=== PATIENT | female | born 1990 | race Caucasian/White ===

== ENCOUNTER 2020-09-14 16:55 | Inpatient (IN) | payer OTHER ==
[~2020-09-14] VITALS: Ht 162.6 cm; Wt 56.4 kg
[2020-09-14 17:35] VITALS: BP 140/80
[2020-09-14 18:16] LABS: BILIRUBIN Negative (Negative); BLOOD Negative (Negative); CLARITY Cloudy (Clear); COLOR Yellow (Yellow); GLUCOSE Negative (Negative); KETONE Trace (Negative); LEUKO ESTERASE Negative (Negative); NITRITE Negative (Negative); SPECIFIC GRAVITY >= 1.030 (1.001-1.030)
[2020-09-14 18:23] LABS: ALBUMIN 3.7 gm/dl (3.1-4.5); ALKALINE PHOSPHATASE 94 U/L (45-117); BUN 11 mg/dl (7-24); CHLORIDE 105 mmol/L (98-107); CREATININE 0.63 mg/dL (0.55-1.02); POTASSIUM 4.1 mmol/L (3.5-5.1); SGOT/AST 18 IU/L (3-35); SGPT/ALT 11 U/L (12-78); SODIUM 136 mmol/L (136-145); TOTAL PROTEIN 8.2 gm/dL (6.4-8.2)
[2020-09-14 18:27] LABS: BACTERIA TRACE; CALCIUM OXALATE CRYSTALS 3+; EPITHELIAL CELLS 21-30; MUCOUS 2+; URINE AMPHETAMINES > 1000 (1000ng/ml); URINE BARBITURATES < 200 (200ng/ml); URINE BENZODIAZEPINES < 200 (200ng/ml); URINE CANNABINOIDS (THC) < 50 (50ng/ml); URINE COCAINE < 300 (300ng/ml); URINE METHADONE < 300 (300ng/ml); URINE OPIATES < 300 (300ng/ml); WBC 0-2 wbc/hpf (0-5)
[2020-09-14 18:35] LABS: BETA-HCG, QUANT < 1.0 mIU/mL (1-3); ETHYL ALCOHOL < 3.0 mg/dl (<3)
[2020-09-14 18:35] LABS: URINE PHENCYCLIDINE < 25 (25ng/ml)
[2020-09-14 20:00] VITALS: BP 127/79
[2020-09-14 20:01] LABS: BASO % 0.4 % (0.0-1.0); EOS # 0.1 10*3/uL (0.0-0.4); HEMATOCRIT 36.8 % (37.0-47.0); LYMPH # 3.3 10*3/uL (1.3-4.4); LYMPH % 31.8 % (27.0-41.0); MEAN CELL VOLUME 78.5 fl (81.0-99.0); MEAN CORPUSCULAR HGB 24.3 pg (27.0-31.0); MEAN PLATELET VOLUME 9.8 fl (9.6-12.3); MONO # 0.8 10*3/uL (0.1-1.0); MONO % 7.3 % (3.0-9.0); NEUT # 6.1 10*3/uL (2.3-7.9); NEUT % 59.3 % (47.0-73.0); PLATELET COUNT AUTOMATED 304 10*3/uL (130-400); RED BLOOD COUNT 4.69 10*6/uL (4.10-5.10); RED CELL DISTRI WIDTH 15.9 % (0-14.5); WHITE BLOOD COUNT 10.3 10*3/uL (4.8-10.8)
[2020-09-15] VITALS: BP 123/76
[2020-09-15 08:00] VITALS: BP 120/64
[2020-09-15 12:00] VITALS: BP 114/63
[2020-09-15 16:00] VITALS: BP 110/62
[2020-09-15 20:00] VITALS: BP 112/55
[2020-09-16] VITALS: BP 113/69
== END 2020-09-16 08:05 | disposition left against medical advice (07) | DRG 770 ==
LOC: 5E 16:55
PROVIDERS: Student in an Organized Health Care Education/Training Program; ADMIT Internal Medicine; ATTEND Internal Medicine
DX: F11.23 Opioid dependence with withdrawal (principal); F17.210 Nicotine dependence, cigarettes, uncomplicated; Z20.822 Contact with and (suspected) exposure to COVID-19; Q61.5 Medullary cystic kidney; F15.10 Other stimulant abuse, uncomplicated; Z79.899 Other long term (current) drug therapy; Z53.29 Procedure and treatment not carried out because of patient's decision for other reasons

== ENCOUNTER 2021-01-14 22:14 | Emergency (ER) | payer OTHER ==
[~2021-01-14] VITALS: Wt 49.9 kg
== END 2021-01-14 22:50 | disposition home or self-care (01) ==
LOC: ED 22:14
DX: F11.20 Opioid dependence, uncomplicated (principal)

== ENCOUNTER 2021-01-16 16:48 | Inpatient (IN) | payer OTHER ==
[~2021-01-16] VITALS: Ht 165.1 cm; Wt 56.2 kg
[2021-01-16 17:08] VITALS: BP 104/63
[2021-01-16 19:32] LABS: BILIRUBIN Negative (Negative); BLOOD Negative (Negative); CLARITY Clear (Clear); COLOR Yellow (Yellow); GLUCOSE Negative (Negative); KETONE Trace (Negative); LEUKO ESTERASE Negative (Negative); NITRITE Negative (Negative); PH 5.5 (4.5-8.0)
[2021-01-16 19:41] LABS: URINE AMPHETAMINES > 1000 (1000ng/ml); URINE BARBITURATES < 200 (200ng/ml); URINE BENZODIAZEPINES < 200 (200ng/ml); URINE CANNABINOIDS (THC) < 50 (50ng/ml); URINE COCAINE < 300 (300ng/ml); URINE METHADONE < 300 (300ng/ml); URINE OPIATES < 300 (300ng/ml)
[2021-01-16 19:44] LABS: URINE PHENCYCLIDINE < 25 (25ng/ml)
[2021-01-16 19:46] LABS: RBC 0-2 rbc/hpf (0-2)
[2021-01-16 19:47] LABS: BACTERIA 1+; MUCOUS 1+
[2021-01-16 19:49] LABS: ALBUMIN 3.7 gm/dl (3.1-4.5); ALKALINE PHOSPHATASE 98 U/L (45-117); BUN 14 mg/dl (7-24); CHLORIDE 106 mmol/L (98-107); CREATININE 0.72 mg/dL (0.55-1.02); SGOT/AST 18 IU/L (3-35); SGPT/ALT 22 U/L (12-78); SODIUM 135 mmol/L (136-145); TOTAL PROTEIN 8.2 gm/dL (6.4-8.2)
[2021-01-16 19:52] LABS: BETA-HCG, QUANT < 1.0 mIU/mL (1-3); ETHYL ALCOHOL < 3.0 mg/dl (<3); TROPONIN I < 0.015 ng/ml (<0.045)
[2021-01-16 19:53] LABS: ACETAMINOPHEN (TYLENOL) < 5.0 ug/ml (10-30)
[2021-01-16 20:18] LABS: BASO % 0.4 % (0.0-1.0); EOS # 0.3 10*3/uL (0.0-0.4); EOS % 3.3 % (1.0-4.0); HEMATOCRIT 34.4 % (37.0-47.0); LYMPH # 4.1 10*3/uL (1.3-4.4); MEAN CELL VOLUME 76.3 fl (81.0-99.0); MEAN CORPUSCULAR HGB 23.7 pg (27.0-31.0); MEAN CORPUSCULAR HGB CONC 31.1 g/dl (33.0-37.0); MEAN PLATELET VOLUME 9.8 fl (9.6-12.3); MONO % 9.7 % (3.0-9.0); NEUT # 4.5 10*3/uL (2.3-7.9); NEUT % 45.4 % (47.0-73.0); PLATELET COUNT AUTOMATED 299 10*3/uL (130-400); RED BLOOD COUNT 4.51 10*6/uL (4.10-5.10); RED CELL DISTRI WIDTH 18.1 % (0-14.5); WHITE BLOOD COUNT 9.9 10*3/uL (4.8-10.8)
[2021-01-16 21:06] VITALS: BP 104/68
[2021-01-16 22:45] VITALS: BP 106/54
[2021-01-17] VITALS: BP 106/54
[2021-01-17 08:00] VITALS: BP 89/47
[2021-01-17 08:10] VITALS: BP 124/86
[2021-01-17 12:00] VITALS: BP 105/57
[2021-01-17 16:00] VITALS: BP 110/58
[2021-01-17 20:00] VITALS: BP 126/66
[2021-01-18] VITALS: BP 127/74
[2021-01-18 08:00] VITALS: BP 119/58
[2021-01-18 12:00] VITALS: BP 117/55
[2021-01-18 16:00] VITALS: BP 115/49
[2021-01-18 20:00] VITALS: BP 112/52
[2021-01-19] VITALS: BP 118/63
[2021-01-19] MEDS ORDERED: ATARAX,VISTARIL50 MG PO (05:45)
[2021-01-19] MEDS ORDERED: ZOFRAN 4 MG ED2 TAB PO (05:45)
[2021-01-19 07:12] LABS: BASO % 0.4 % (0.0-1.0); EOS # 0.2 10*3/uL (0.0-0.4); HEMATOCRIT 38.6 % (37.0-47.0); LYMPH # 3.5 10*3/uL (1.3-4.4); MEAN CORPUSCULAR HGB 23.4 pg (27.0-31.0); MEAN CORPUSCULAR HGB CONC 30.8 g/dl (33.0-37.0); MONO # 0.6 10*3/uL (0.1-1.0); MONO % 7.5 % (3.0-9.0); NEUT # 3.5 10*3/uL (2.3-7.9); NEUT % 44.7 % (47.0-73.0); PLATELET COUNT AUTOMATED 341 10*3/uL (130-400); RED BLOOD COUNT 5.08 10*6/uL (4.10-5.10); RED CELL DISTRI WIDTH 18.2 % (0-14.5); WHITE BLOOD COUNT 7.9 10*3/uL (4.8-10.8)
[2021-01-19 07:27] LABS: CREATININE 0.57 mg/dL (0.55-1.02)
[2021-01-19 08:00] VITALS: BP 119/57
== END 2021-01-19 10:07 | disposition home or self-care (01) | DRG 773 ==
LOC: ED 16:48 → 5E 20:46 → EDHOLD 20:46 → 5E 21:42
PROVIDERS: Nurse Practitioner Family; ADMIT Internal Medicine; ATTEND Internal Medicine
DX: F11.23 Opioid dependence with withdrawal (principal); E87.1 Hypo-osmolality and hyponatremia; F41.9 Anxiety disorder, unspecified; F43.10 Post-traumatic stress disorder, unspecified; F15.10 Other stimulant abuse, uncomplicated; D50.9 Iron deficiency anemia, unspecified; F33.9 Major depressive disorder, recurrent, unspecified; F17.210 Nicotine dependence, cigarettes, uncomplicated; Z71.6 Tobacco abuse counseling